=== PATIENT | female | born 1965 | race Two or more races ===

== ENCOUNTER 2025-04-29 19:57 | Emergency (ER) | payer OTHER ==
[~2025-04-29] VITALS: Ht 160 cm; Wt 99.8 kg
[2025-04-29] MEDS ORDERED: DIOVAN40 MG (20:40)
[2025-04-29] MEDS ORDERED: TIROSINT13 MCG (20:40)
[2025-04-29] MEDS ORDERED: MORPHINE SULFATE 2 MG/ML SYRINGE IV ONE (22:45)
[2025-04-29] MEDS ORDERED: 0.9 % SODIUM CHLORIDE 1,000 ML IV ONE (22:45)
[2025-04-29] MEDS ORDERED: FAMOtidine 10 MG/ML (4ML VIAL) IV ONE (22:45)
[2025-04-29] MEDS ORDERED: FAMOTIDINE/PF 20 MG/2 ML VIAL ONE (23:00)
[2025-04-29 23:37] LABS: BASO % 0.5 % (0.1-1.2); EOS # 0.02 (0.04-0.54); EOS % 0.2 % (0.7-7.0); LYMPH # 1.58 (1.18-3.74); LYMPH % 13.6 % (19.3-53.1); MEAN PLATELET VOLUME 9.50 fl (9.4-12.4); MONO # 0.54 (0.24-0.82); MONO % 4.6 % (4.7-12.5); NEUT # 9.39 (1.56-6.13); NEUT % 80.8 % (34.0-71.1); RED CELL DISTRIBUTION WIDTH 12.8 % (11.6-14.4)
[2025-04-29 23:59] LABS: INR 1.06
[2025-04-30 00:03] LABS: ALT/SGPT 40.0 U/L (12-78); AST/SGOT 17.0 U/L (15-37); BILIRUBIN TOTAL 0.28 mg/dL (0.3-1.2); BUN CREA RATIO 21.0 (7.0-25.0); CREATININE SERUM 0.61 mg/dL (0.55-1.02); GFR 100.05; GLOBULINA 4.2 G/DL (2.4-3.5); GLUCOSE FASTING 112.0 mg/dL (65-100); OSMOLALITY SERUM 282.0 MOSM/KG (275-295)
[2025-04-30] MEDS ORDERED: NORFLEX100MG PO (01:00)
[2025-04-30 01:58] LABS: URINE APPEARANCE Clear; URINE BILIRRUBIN Negative (NEGATIVE); URINE BLOOD Negative; URINE COLOR Yellow; URINE GLUCOSE Negative (NEGATIVE); URINE KETONE Negative (NEGATIVE); URINE LEUKOCYTE Trace; URINE NITRATE Negative; URINE PROTEIN Negative (NEGATIVE); URINE UROBILINOGEN 0.2 E.U./dl
[2025-04-30 02:03] LABS: URINE BACTERIA 792.5 uL (0.0-1933); URINE EPITHELIAL CELLS 27.2 uL (0.0-38.8); URINE RBC 5.2 uL (0.0-20.8); URINE WBC 42.9 uL (0.0-23.2)
[2025-04-30 02:10] LABS: URINE CAST 0.14 uL (0.0-1.40)
== END 2025-04-30 01:48 | disposition home or self-care (01) ==
LOC: ER 19:58
PROVIDERS: General Practice
DX: R07.89 Other chest pain (principal); R00.2 Palpitations; E11.9 Type 2 diabetes mellitus without complications; Z79.84 Long term (current) use of oral hypoglycemic drugs; I10 Essential (primary) hypertension; E03.9 Hypothyroidism, unspecified